=== PATIENT | female | born 1975 | race Caucasian/White ===

== ENCOUNTER 2017-03-23 18:55 | Emergency (ER) | payer SELFPAY ==
--- NOTE | 2017-03-23 19:51 | ED Physician Chart ---
Chief Complaint/HPI - Patient Information Date Seen:: 03/23/17 Time Seen:: 19:46 Chief Complaint:: nausea History of Present Illness:: pt was picked up by police...while in back of police car pt felt hot and nauseous. pt transfered to ed by way of ems and was released from police custody. pt feels better at this time ..no nause or hot or dizziness now. pt has a pmh of ovarial ca but had had no tx x last 2 yrs. was advised to get hysterecomy 2 yrs ago. otherwise is healthy ....hasnt eaten well lately. admits c meth use to staff. pt currently feels fine. i offered pt a cardiac work up to check everything is ok and pt is refusing labs and ecg. says prefers to sign out ama. all questions answered. exam did not show any obvious instability. ama was signed. Allergies:: Allergies Allergy/AdvReac Type Severity Reaction Status Date / Time acetaminophen [From Vicodin] AdvReac Verified 03/23/17 18:58 codeine AdvReac Verified 03/23/17 18:58 hydrocodone [From Vicodin] AdvReac Verified 03/23/17 18:58 Vitals:: Vital Signs - 8 hr 03/23/17 18:59 Temp 98.4 F HR 78 RR 16 BP 138/68 O2 Sat % 98 Historian:: Patient Review of Systems - Review of Systems General/Constitutional: No fever, No chills, No weight loss, No weakness, No diaphoresis, No edema, Loss of appetite, No loss of appetite Skin: No skin lesions, No rash, No bruising Head: No headache, No light-headedness Eyes: No loss of vision, No pain, No diplopia ENT: No earache, No nasal drainage, No sore throat, No tinnitus Neck: No neck pain, No swelling, No thyromegaly, No stiffness, No mass noted Cardio Vascular: No chest pain, No palpitations, No PND, No orthopnea, No edema Pulmonary: No SOB, No cough, No sputum, No wheezing GI: Nausea (earlier), No nausea, No vomiting, No diarrhea, No pain, No melena, No hematochezia, No constipation, No hematemesis G/U: No dysuria, No frequency, No hematuria Musculoskeletal: No bone or joint pain, No back pain, No muscle pain Endocrine: No polyuria, No polydipsia Psychiatric: No prior psych history, No depression, No anxiety, No suicidal ideation Hematopoietic: No bruising, No lymphadenopathy Allergic/Immuno: No urticaria, No angioedema Neurological: No syncope, No focal symptoms, No weakness, No paresthesia, No headache, No seizure, Dizziness (earlier), No dizziness, No confusion, No vertigo Past Medical History - Past Medical History Past Medical History: Other (ov ca 2 yrs ago.) Social History: Illicit Drug Use Medication: Reviewed Family Medical History - Family Member Mother Hx Family Hypertension: No Hx Family Dementia: No Hx Family AIDS: No Hx Family HIV: No Hx Family COPD: No Hx Family Hepatitis: No Hx Family Tuberculosis: No Physical Exam - Physical Examination General/Constitutional: Awake, Well-developed, well-nourished, Alert, No distress, GCS 15, Non-toxic appearing, Ambulatory Other Gen/Cons comments:: thin female w slightly jumpy mvts. seems sltly hyperexcitable. pt is alert and moves alllimbs ok. no sob. no n/v/d color ok. mmm. wn/wh. hrt reg rrr/ s1s2 no m. lungs clear b abd nt no edema ambulates ok hearing ok, tm cl b Head: Atraumatic Eyes: Lids, conjuctiva normal, PERRL, EOMI Skin: Nl inspection, No rash, No skin lesions, No ecchymosis, Well hydrated, No lymphadenopathy ENMT: External ears, nose nl, Nasal exam nl, Lips, teeth, gums nl Neck: Nontender, Full ROM w/o pain, No JVD, No nuchal rigidity, No bruit, No mass, No stridor Respiratory: Nl effort/Exclusion, Clear to Auscultation, No Wheeze/Rhonchi/Rales Cardio Vascular: RRR, No murmur, gallop, rubs, NL S1 S2 GI: No tenderness/rebounding/guarding, No organomegaly, No hernia, Normal BS's, Nondistended, No mass/bruits, No McBurney tenderness : No CVA tenderness Extremities: No tenderness or effusion, Full ROM, normal strength in all extremities, No edema, Normal digits & nails Neuro/Psych: Alert/oriented, DTR's symmetric, Normal sensory exam, Normal motor strength, Judgement/insight normal, Mood normal, Normal gait, No focal deficits Misc: normal gait, Normal back, No paraspinal tenderness ED Septic Shock - . Is Septic Shock (SBP<90, OR Lactate>4 mmol\L) present?: No - <6hrs of presentation: Vital Signs: Vital Signs - 8 hr 03/23/17 18:59 Temp 98.4 F HR 78 RR 16 BP 138/68 O2 Sat % 98 Reassessment (Disposition) - Reassessment Reassessment Condition:: Improved - Diagnosis Diagnosis:: s/p dizzy spell in police car pt left AMA - Patient Disposition Discharge/Transfer:: Against Medical Advice Condition at Disposition:: Improved
== END 2017-03-23 19:40 | disposition left against medical advice (07) ==
LOC: ER 18:55
DX: R42 Dizziness and giddiness (principal); Z88.5 Allergy status to narcotic agent; Z88.8 Allergy status to other drugs, medicaments and biological substances
CPT/HCPCS: Z7502

== ENCOUNTER 2017-05-01 11:27 | Emergency (ER) | payer MEDICAID ==
--- NOTE | 2017-05-01 12:06 | ED Physician Chart ---
ED Chief Complaint/HPI - Patient Information Date Seen:: 05/01/17 Time Seen:: 12:04 Chief Complaint:: LEFT LOWER ABD/PELVIC THIS AM History of Present Illness:: THIS 41 YEAR OLD FEMALE HAD ONSET OF PAIN IN THE LEFT LOWER ABDOMEN BETWEEN 9 AND 10 AM. THE PAIN IS INTERMITTENT WITH NO RELIEVING OR PRECIPITATING FACTORS. THERE IS NO RADIATION OF TH3E PAIN. THE PAIN IS ACCOMPANIED WITH NAUSEA WITHOUT VOMITING. THE PATIENT HAD 2 EPISODES OF DIARRHEA YESTERDAY AND ONE EPISODE THIS AM. THE PATIENT DENIES DYSURIA, HEMATURIA, OR URINARY FREQUENCY. THE PT HAS A PRIOR HX OF OVARIAN CA INVOLVING THE LT OVARY IN 2008. SHE HAD AN INCOMPLETE COURSE OF XRT WITHOUT CHEMOTX OR SURGERY. THE PT HAS HAD SUBJECTIVE FEVER THIS AM. NO ASSOCIATED CHILLS OR DIAPHORESIS. Allergies:: Allergies Allergy/AdvReac Type Severity Reaction Status Date / Time Opioids - Morphine Analogues Allergy Verified 05/01/17 11:38 acetaminophen [From Vicodin] AdvReac Verified 03/23/17 18:58 codeine AdvReac Verified 03/23/17 18:58 hydrocodone [From Vicodin] AdvReac Verified 03/23/17 18:58 Vitals:: Vital Signs - 8 hr 05/01/17 11:39 Temp 98.5 F HR 85 RR 16 BP 116/76 O2 Sat % 99 ED Review of Systems - Review of Systems General/Constitutional: Fever, No chills, No weight loss, No weakness, No diaphoresis, No edema, Loss of appetite, Other (the fever was subjective and the patient did not take her temperature at this a.m.) Skin: No skin lesions, No rash, No bruising Head: No headache, No light-headedness Eyes: No loss of vision, No pain, No diplopia ENT: No earache, No sore throat, No tinnitus Neck: Neck pain (patient has pain in the left side of her neck with turning movement of the head to the right or left.), No swelling, No thyromegaly, Stiffness, No mass noted Cardio Vascular: No chest pain, No palpitations, No edema Pulmonary: No SOB, No cough, No sputum GI: Nausea, No vomiting, Diarrhea, Pain, No melena, No hematochezia, No constipation, No hematemesis G/U: No dysuria, No frequency, No hematuria Bonsai Tender: No vaginal discharge, No abnormal vaginal bleed, Other (the patient is 4 para 4 with her last menstrual period 3 weeks ago.) Musculoskeletal: No bone or joint pain, No muscle pain Psychiatric: No suicidal ideation Hematopoietic: No bruising, No lymphadenopathy Allergic/Immuno: No urticaria, No angioedema Neurological: No syncope, No focal symptoms, No weakness, No paresthesia, No headache, No seizure, No dizziness, No confusion, No vertigo ED Past Medical History - Past Medical History Past Medical History: Other (diabetes, asthma, or seizure disorder.) Social History: Smoker (spoke 7-8 cigarettes per day.), No Alcohol, Illicit Drug Use (uses methamphetamine on a regular basis.), Single, Homeless Employment:: Unemployed. Surgical History: None (patient has a prior history of depression associated with her divorce 8 years ago. No current depression.) Family Medical History - Family Member Mother Hx Family Cancer: No Hx Family Coronary Artery Disease: No Hx Family Hypertension: No Hx Family Stroke: No Hx Family Diabetes: No Hx Family Dementia: No Hx Family AIDS: No Hx Family HIV: No Hx Family COPD: No Hx Family Hepatitis: No Hx Family Psychiatric Problems: No Hx Family Tuberculosis: No ED Physical Exam - Physical Examination General/Constitutional: Awake, Well-developed, well-nourished, Alert, GCS 15, Non-toxic appearing, Ambulatory Head: Atraumatic Eyes: Lids, conjuctiva normal, PERRL, EOMI Other Eyes comments:: No nystagmus. Skin: No rash, No ecchymosis, Well hydrated, No lymphadenopathy Other Skin comments:: The patient has a well-healed scar at the base of her spine which was from a prior spider bite. ENMT: External ears, nose nl, TM canals nl, Nasal exam nl, Lips, teeth, gums nl , Oropharynx nl, Tonsils nl Other ENMT comments:: Her teeth are in surprisingly good repair. Adequate oral hydration. Neck: No JVD, No nuchal rigidity, No bruit, No stridor Other Neck comments:: Patient has tenderness on palpation in the region of the left trapezius. No tenderness of the C-spine. Respiratory: Nl effort/Exclusion, Clear to Auscultation, No Wheeze/Rhonchi/Rales Cardio Vascular: RRR, No murmur, gallop, rubs, NL S1 S2 Other Cardio Vascular comments:: Good pulses all 4 extremities. GI: No hernia, Normal BS's, Nondistended, No mass/bruits, No McBurney tenderness Other GI comments:: Bowel sounds are normal. On palpation there is mild tenderness in the left lower quadrant without associated guarding or rebound. No masses are appreciated. : No CVA tenderness Extremities: No tenderness or effusion, Full ROM, normal strength in all extremities, No edema, Normal digits & nails Neuro/Psych: Alert/oriented, Normal sensory exam, Normal motor strength, Mood normal, Normal gait, No focal deficits Misc: Normal back, No paraspinal tenderness ED Labs/Radiology/EKG Results - Lab Results Results: Laboratory Tests 05/01/17 05/01/17 05/01/17 12:39 12:39 14:30 WBC 6.0 RBC 4.43 Hgb 12.0 Hct 35.7 L MCV 80.6 L MCH 27.1 MCHC Differential 33.6 RDW 16.0 Plt Count 280 MPV 7.7 Neutrophils % 64.7 Lymphocytes % 26.6 Monocytes % 7.8 Eosinophils % 0.8 Basophils % 0.1 Sodium 134 L Potassium 3.5 Chloride 105 Carbon Dioxide 25.8 Anion Gap 6.7 L BUN 14 Creatinine 0.7 Est GFR ( Amer) > 60.0 Est GFR (Non-Af Amer) > 60.0 BUN/Creatinine Ratio 20.0 Glucose 106 H Calcium 8.9 Total Bilirubin 0.3 AST 15 ALT 11 Alkaline Phosphatase 46 Total Protein 6.8 Albumin 3.9 Globulin 2.9 Albumin/Globulin Ratio 1.3 Amylase 25 L Lipase 48 Urine Source RANDOM Urine Color YELLOW Urine Clarity HAZY Urine pH 5.5 Ur Specific Shiro 1.010 Urine Protein NEGATIVE Urine Glucose (UA) NEGATIVE Urine Ketones NEGATIVE Urine Blood NEGATIVE Urine Nitrate NEGATIVE Urine Bilirubin NEGATIVE Urine Urobilinogen 0.2 Ur Leukocyte Esterase TRACE H Urine RBC NONE SEEN Urine WBC 2-5 Ur Epithelial Cells MODERATE Amorphous Sediment FEW URATES Urine Bacteria 1+ H Urine Test 05/01/17 14:30 WBC RBC Hgb Hct MCV MCH MCHC Differential RDW Plt Count MPV Neutrophils % Lymphocytes % Monocytes % Eosinophils % Basophils % Sodium Potassium Chloride Carbon Dioxide Anion Gap BUN Creatinine Est GFR ( Amer) Est GFR (Non-Af Amer) BUN/Creatinine Ratio Glucose Calcium Total Bilirubin AST ALT Alkaline Phosphatase Total Protein Albumin Globulin Albumin/Globulin Ratio Amylase Lipase Urine Source Urine Color Urine Clarity Urine pH Ur Specific Shiro Urine Protein Urine Glucose (UA) Urine Ketones Urine Blood Urine Nitrate Urine Bilirubin Urine Urobilinogen Ur Leukocyte Esterase Urine RBC Urine WBC Ur Epithelial Cells Amorphous Sediment Urine Bacteria Urine Test NEGATIVE The CBC is unremarkable in that there is no leukocytosis or anemia. Chemistries show a mild hyponatremia which is of no clinical significance. The remaining electrolytes are all within normal parameters. Liver function tests are all within normal parameters. Urinalysis shows no evidence for a UTI. An ultrasound examination of the abdomen and pelvis was negative for any free fluid. The patient had 2 small cysts in the right ovary both of which were less than 1 cm. There was a heterogeneous structure within the uterine wall consistent with a fibroid. No left adnexal masses or cysts were seen. The study was somewhat limited by increased gas in the left lower quadrant. ED Assessment - Assessment General Assessment: CASE SUMMARY: This 41-year-old female presents with onset of left lower quadrant and pelvic pain earlier this a.m. The pain did not radiate into the back or the lower extremities. She described the pain as being sharp with a 7/ 10 in severity and with no alleviating or exacerbating factors. Patient had a subjective fever this a.m. which was not present during her evaluation in the ED. On physical examination she was awake and alert and appeared to be in mild distress. The abdomen was soft with minimal tenderness in the left lower quadrant and without any rebound or guarding. Ultrasound examination of the left kidney, left lower quadrant and left pelvic region was negative for any acute pathology. The patient had good relief of pain with the Toradol and will be discharged home. The patient is a methamphetamine user and will be given a referral for recovery centers in our area. Patient was advised to return to the emergency department if there is any significant return of pain or new problems not addressed during her emergency visit. Discharged in stable condition. MDM DDX LEFT LOWER QUADRANT ABDOMINAL PAIN: NOT ectopic based on negative test. NOT torsion of ovarian cysts based on negative ultrasound of the region. NOT RENAL COLIC based on the patient's physical appearance and no evidence of hydronephrosis of the left kidney on the ultrasound.. NOT ischemic bowel disease based on the patient's history, physical examination and laboratory studies. NOT aortic dissection based on the patient's history, physical examination and ultrasound report. ED Septic Shock - . Is Septic Shock (SBP<90, OR Lactate>4 mmol\L) present?: No - <6hrs of presentation: Vital Signs: Vital Signs - 8 hr 05/01/17 11:39 Temp 98.5 F HR 85 RR 16 BP 116/76 O2 Sat % 99 ED Reassessment (Disposition) - Reassessment Reassessment Condition:: Improved - Diagnosis Diagnosis:: ABDOMINAL PAIN OF UNCLEAR ETIOLOGY. METHAMPHETAMINE ABUSE. HISTORY OF LEFT OVARIAN CANCER. ED Discharge Plan - Patient Disposition Instructions: Abdominal Pain, [id number]
[2017-05-01 12:46] LABS: % BASOPHILS 0.1 % (0.0-2.0); % EOSINOPHILS 0.8 % (0.0-5.0); % LYMPHOCYTES 26.6 % (20.0-50.0); % MONOCYTES 7.8 % (2.0-10.0); % NEUTROPHILS 64.7 % (40.0-80.0); HEMATOCRIT 35.7 % (41.0-60); MEAN CELL VOLUME 80.6 fl (81-100); MEAN CORPUSCULAR HEMOGLOBIN 27.1 pg (27.0-31.0); MEAN CORPUSCULAR HGB CONC 33.6 pg (28.0-36.0); MEAN PLATELET VOLUME 7.7 fl; NEUTROPHILE ABSOLUTE 3.9 Th/cmm (1.8-8.0); PLATELET COUNT 280 Th/cmm (150-400); RED BLOOD COUNT 4.43 Mil/cmm (3.80-5.10)
[2017-05-01 13:09] LABS: ANION GAP 6.7 (7.0-16.0); BUN - UREA NITROGEN 14 mg/dL (7-25); CARBON DIOXIDE 25.8 mEq/L (21.0-31.0); CHLORIDE 105 mEq/L (98-107); CREATININE - SERUM 0.7 mg/dL (0.6-1.2); GLUCOSE 106 mg/dL (70-105); POTASSIUM SERUM 3.5 mEq/L (3.5-5.1); SODIUM SERUM 134 mEq/L (136-145)
[2017-05-01 13:10] LABS: ALB/GLOB RATIO 1.3 (1.0-1.8); ALKALINE PHOSPHATASE 46 U/L (34-104); AMYLASE SERUM 25 U/L (29-103); BILIRUBIN,TOTAL 0.3 mg/dL (0.3-1.0); CALCIUM SERUM 8.9 mg/dL (8.6-10.3); SGOT 15 U/L (13-39); SGPT/ALT 11 U/L (7-52)
[2017-05-01 13:11] LABS: LIPASE 48 U/L (11-82)
[2017-05-01 14:54] LABS: URINE BILIRUBIN NEGATIVE (NEGATIVE); URINE BLOOD NEGATIVE (NEGATIVE); URINE GLUCOSE (UA) NEGATIVE (NEGATIVE); URINE KETONE NEGATIVE (NEGATIVE); URINE PH 5.5 (4.6 - 8.0); URINE PROTEIN NEGATIVE (NEGATIVE); URINE UROBILINOGEN 0.2 E.U./dL (0.2 - 1.0)
[2017-05-01 15:11] LABS: URINE COLOR YELLOW
[2017-05-01 15:12] LABS: URINE AMORPHOUS SEDIMENT FEW URATES (NONE SEEN); URINE BACTERIA 1+ /hpf (NONE SEEN); URINE EPITHELIAL CELLS MODERATE /lpf (FEW); URINE RBC NONE SEEN /hpf (0-5)
--- NOTE | 2017-05-02 09:12 | Diagnostic Imaging Report ---
Abdominal) Limited) HISTORY: Pain The upper abdomen including the liver, gallbladder, right kidney and pancreatic regions were not evaluated. The left kidney measures 9.9 x 5.3 x 5.9 cm. No focal lesions. No hydronephrosis. The spleen is normal in size (9.5 cm length). IMPRESSION: 1. Limited exam of the left kidney and spleen. Remaining intra-abdominal organs were not evaluated time. No abnormality seen within the scanned area.
--- NOTE | 2017-05-02 09:14 | Diagnostic Imaging Report ---
Pelvic ultrasound HISTORY: Pain Transabdominal and transvaginal sonographic technique were utilized. There is a normal size uterus with a bulbous contour (9.4 x 5.3 x 5.9 cm). There is a 2.3 cm focus within the anterior uterine wall suggesting fibroid formation. An approximate 1.0 cm sonolucent focus is seen in the region of the cervix consistent with involuting cyst. Several punctate echogenic foci that may be related to calcifications noted in the region of the cervix. Clinical correlation and correlation with Pap smear recommended. The right ovary measures 3.1 x 2.1 x 2.0 cm. Subcentimeter cysts are seen. The left ovary is unremarkable. No free fluid in the pelvis. IMPRESSION: 1. Normal uterine size with findings suggesting fibroid formation 2. Right ovarian cystic changes 3. Sonolucent focus in the region of the cervix consistent with both thin cyst. Additional punctate echogenic foci also noted in the region of the cervix. May be related to calcification. However clinical correlation and correlation with Pap smear recommended.
== END 2017-05-01 15:42 | disposition home or self-care (01) ==
LOC: ER 11:27
DX: R10.9 Unspecified abdominal pain (principal); F15.10 Other stimulant abuse, uncomplicated; F17.200 Nicotine dependence, unspecified, uncomplicated; E11.9 Type 2 diabetes mellitus without complications; J45.909 Unspecified asthma, uncomplicated; G40.909 Epilepsy, unspecified, not intractable, without status epilepticus; Z85.43 Personal history of malignant neoplasm of ovary
CPT/HCPCS: 99285; 96372; 76705; 76856; 36415; 85025; 81001; 82150; 81025; 83690; 80053; J1885

== ENCOUNTER 2018-02-04 19:21 | Emergency (ER) | payer SELFPAY ==
--- NOTE | 2018-02-04 20:12 | ED Physician Chart ---
ED Chief Complaint/HPI - Patient Information Date Seen:: 02/04/18 Time Seen:: 20:07 Chief Complaint:: RT FLANK PAIN History of Present Illness:: 42 YR OLD FEMALE WITH HX OF HOMELESSNESS METH ABUSE PICKED UP BY [facility] IN FRONT OF 7-11 FOR RT FLANK PAIN APPRENTLY WAS IN ER BEFORE GIVEN MEDS FOR UTI BUT DID NOT FILL THE RX PT WITH WORSENING RT FLANK PAIN NO FEVER SWEATS OR BACK PAIN NO HEMATURIA Allergies:: Allergies Allergy/AdvReac Type Severity Reaction Status Date / Time Opioids - Morphine Analogues Allergy Verified 02/04/18 19:50 acetaminophen [From Vicodin] AdvReac Verified 02/04/18 19:50 codeine AdvReac Verified 02/04/18 19:50 hydrocodone [From Vicodin] AdvReac Verified 02/04/18 19:50 Vitals:: Vital Signs - 8 hr 02/04/18 19:40 Temp 98.2 F HR 88 RR 16 BP 117/82 O2 Sat % 100 Historian:: Patient, EMS ED Review of Systems - Review of Systems General/Constitutional: No fever, No chills, No weight loss, No weakness, No diaphoresis, No edema, No loss of appetite Skin: No skin lesions, No rash, No bruising Head: No headache, No light-headedness Eyes: No loss of vision, No pain, No diplopia ENT: No earache, No nasal drainage, No sore throat, No tinnitus Neck: No neck pain, No swelling, No thyromegaly, No stiffness, No mass noted Cardio Vascular: No chest pain, No palpitations, No PND, No orthopnea, No edema Pulmonary: No SOB, No cough, No sputum, No wheezing GI: No nausea, No vomiting, No diarrhea, No pain, No melena, No hematochezia, No constipation, No hematemesis G/U: Dysuria, No frequency, No hematuria Musculoskeletal: No bone or joint pain, No back pain, No muscle pain Endocrine: No polyuria, No polydipsia Psychiatric: No prior psych history, No depression, No anxiety, No suicidal ideation Hematopoietic: No bruising, No lymphadenopathy Allergic/Immuno: No urticaria, No angioedema Neurological: No syncope, No focal symptoms, No weakness, No paresthesia, No headache, No seizure, No dizziness, No confusion, No vertigo ED Past Medical History - Past Medical History Past Medical History: Other (METH ABUSE CCY) Family Medical History - Family Member Mother History Unknown: Yes Hx Family Cancer: No Hx Family Coronary Artery Disease: No Hx Family Hypertension: No Hx Family Stroke: No Hx Family Diabetes: No Hx Family Dementia: No Hx Family AIDS: No Hx Family HIV: No Hx Family COPD: No Hx Family Hepatitis: No Hx Family Psychiatric Problems: No Hx Family Tuberculosis: No ED Physical Exam - Physical Examination General/Constitutional: Awake, Well-developed, well-nourished, Alert, No distress, GCS 15, Non-toxic appearing, Ambulatory Head: Atraumatic Eyes: Lids, conjuctiva normal, PERRL, EOMI Skin: Nl inspection, No rash, No skin lesions, No ecchymosis, Well hydrated, No lymphadenopathy ENMT: External ears, nose nl, Nasal exam nl, Lips, teeth, gums nl Neck: Nontender, Full ROM w/o pain, No JVD, No nuchal rigidity, No bruit, No mass, No stridor Respiratory: Nl effort/Exclusion, Clear to Auscultation, No Wheeze/Rhonchi/Rales Cardio Vascular: RRR, No murmur, gallop, rubs, NL S1 S2 GI: No tenderness/rebounding/guarding, No organomegaly, No hernia, Normal BS's, Nondistended, No mass/bruits, No McBurney tenderness : No CVA tenderness Other comments:: RT FLANK PAIN Extremities: No tenderness or effusion, Full ROM, normal strength in all extremities, No edema, Normal digits & nails Neuro/Psych: Alert/oriented, DTR's symmetric, Normal sensory exam, Normal motor strength, Judgement/insight normal, Mood normal, Normal gait, No focal deficits Misc: Normal back, No paraspinal tenderness ED Assessment - Assessment General Assessment: RT FLANK PAIN ED Septic Shock - . Is Septic Shock (SBP<90, OR Lactate>4 mmol\L) present?: No - <6hrs of presentation: Vital Signs: Vital Signs - 8 hr 02/04/18 19:40 Temp 98.2 F HR 88 RR 16 BP 117/82 O2 Sat % 100 ED Reassessment (Disposition) - Reassessment Reassessment:: RT FLANK PAIN R/O UTI - Diagnosis Diagnosis:: FLANK PAIN R/O UTI - Aftercare/Follow up Instructions Medication Prescribed:: PLEASE REFILL YOUR MEDS - Patient Disposition Discharge/Transfer:: Home
[2018-02-04 21:13] LABS: % BASOPHILS 0.1 % (0.0-2.0); % EOSINOPHILS 0.3 % (0.0-5.0); % LYMPHOCYTES 8.1 % (20.0-50.0); % MONOCYTES 6.1 % (2.0-10.0); % NEUTROPHILS 85.4 % (40.0-80.0); HEMATOCRIT 33.8 % (41.0-60); HEMOGLOBIN 11.3 gm/dL (12-16); LYMPHOCYTE ABSOLUTE 1.2 Th/cmm (1.5-3.0); MEAN CELL VOLUME 78.6 fl (81-100); MEAN CORPUSCULAR HEMOGLOBIN 26.2 pg (27.0-31.0); MEAN CORPUSCULAR HGB CONC 33.4 pg (28.0-36.0); MONOCYTE ABSOLUTE 0.9 Th/cmm (0.3-1.0); NEUTROPHILE ABSOLUTE 12.1 Th/cmm (1.8-8.0); PLATELET COUNT 332 Th/cmm (150-400); RED CELL DISTRIBUTION WIDTH 15.9 % (11.5-20.0); WHITE BLOOD COUNT 14.2 Th/cmm (4.8-10.8)
[2018-02-04 21:18] LABS: URINE MICROSCOPIC INDICATED? YES; URINE SOURCE CLEAN C
[2018-02-04 21:20] LABS: URINE BILIRUBIN NEGATIVE (NEGATIVE); URINE BLOOD NEGATIVE (NEGATIVE); URINE GLUCOSE (UA) NEGATIVE (NEGATIVE); URINE KETONE NEGATIVE (NEGATIVE); URINE LEUKOCYTE ESTERASE SMALL (NEGATIVE); URINE NITRATE NEGATIVE (NEGATIVE); URINE PROTEIN NEGATIVE (NEGATIVE)
[2018-02-04 21:26] LABS: ALB/GLOB RATIO 1.2 (1.0-1.8); ALBUMIN 3.7 gm/dL (3.7-5.3); ALKALINE PHOSPHATASE 70 U/L (34-104); ANION GAP 10.9 (7.0-16.0); BILIRUBIN,TOTAL 0.2 mg/dL (0.3-1.0); BUN - UREA NITROGEN 14 mg/dL (7-25); CALCIUM SERUM 8.8 mg/dL (8.6-10.3); CARBON DIOXIDE 24.6 mEq/L (21.0-31.0); CHLORIDE 99 mEq/L (98-107); CREATININE - SERUM 0.7 mg/dL (0.6-1.2); GFR AFRICAN-AMERICAN > 60.0 ml/min (>90); GFR NON AFRICAN-AMERICAN > 60.0 ml/min; GLUCOSE 124 mg/dL (70-105); POTASSIUM SERUM 3.5 mEq/L (3.5-5.1); SGOT 19 U/L (13-39); SGPT/ALT 12 U/L (7-52); SODIUM SERUM 131 mEq/L (136-145); TOTAL PROTEIN,SERUM 6.7 gm/dL (6.0-8.3)
[2018-02-04 21:29] LABS: URINE CLARITY HAZY (CLEAR); URINE COLOR YELLOW
[2018-02-04 21:30] LABS: URINE BACTERIA MODERATE /hpf (NONE SEEN); URINE EPITHELIAL CELLS OCCASIONAL /lpf (FEW); URINE RBC 0-2 /hpf (0-5)
--- NOTE | 2018-02-05 09:16 | Diagnostic Imaging Report ---
CT abdomen and pelvis without intravenous contrast Indication: Abdominal pain Comparison: None, Technique: Axial images were obtained from the lung bases to the bilateral proximal femurs without IV contrast. Coronal reconstructions were made. total DLP: 369, CTDI7.5 FINDINGS: Hypoventilatory and atelectatic changes of the lung bases are noted. Assessment of the solid organs is limited that lack of IV contrast. No evidence of focal hepatic lesions. The patient is status post cholecystectomy. No focal splenic lesions. No focal pancreatic or adrenal lesions. Right-sided perinephric inflammatory changes are seen with trace free fluid. There is fullness of right renal collection system without napoleon hydronephrosis. There is right hydroureter. Markedly distended urinary bladder is noted. Tiny pocket of gas is seen along the anterior nondependent portion of the urinary bladder. There is copious amount of stool throughout the colon. No evidence of appendicitis. Nonspecific gas-filled loops of bowel are noted. No evidence of free abdominal air. Degenerative change lower lumbar spine are noted. IMPRESSION: Right-sided perinephric inflammatory changes with mild right hydroureter. No radiopaque renal stones identified. Trace right perinephric free fluid is also noted. There is also distention of the urinary bladder. A tiny pocket of gas is also seen along the anterior nondependent portion of the urinary bladder. Correlation should be made for inflammatory infectious process/possible pyelonephritis. Clinical correlation and follow-up is recommended. Copious stool throughout the colon and gas-filled loops of bowel. No evidence of appendicitis. Status post cholecystectomy.
== END 2018-02-05 01:15 | disposition home or self-care (01) ==
LOC: ER 19:21
DX: R10.9 Unspecified abdominal pain (principal); R30.0 Dysuria; Z88.5 Allergy status to narcotic agent
CPT/HCPCS: 99285; 96372 ×3; 74176; 36415; 85025; 87086; 81001; 81025; 80053; 87040 ×2; J1885; J0696